=== PATIENT | male | born 1950 | race Caucasian/White ===

== ENCOUNTER 2020-07-14 09:10 | Outpatient (REF) | payer MEDICARE, SELFPAY ==
[2020-07-14 13:40] LABS: HCT 48.2 % (40.0-50.0); MCH 31.7 pg (27.0-33.0); MCHC 33.2 % (32.0-36.0); MCV 95.4 fL (80-95); MPV 10.9 fL (8.0-11.0); Platelet Count 157 10^3/uL (130-400); RBC 5.05 10^6/uL (4.36-5.78); RDW 13.7 % (11.8-14.1); RDW-SD 48.3 fL; WBC 5.64 10^3/uL (4.4-10.8)
[2020-07-14 14:09] LABS: ALT 24 U/L (16-63); AST 19 U/L (15-37); Albumin 3.9 g/dL (3.4-5.0); Alkaline Phosphatase 73 U/L (46-116); BUN 18 mg/dL (7-18); Bilirubin, Total 0.8 mg/dL (0.2-1.0); CREATININE 0.9 mg/dL (0.70-1.30); Calculated LDL 141 mg/dL (<100); Chloride 104 mmol/L (98-107); Cholesterol 206 mg/dL (<200); Glucose 91 mg/dL (74-106); HDL Cholesterol 54 mg/dL (40-60); Potassium 4.7 mmol/L (3.5-5.1); Sodium 142 mmol/L (136-145); Triglyceride 55 mg/dL (<150)
[2020-07-14 22:03] LABS: PSA, Screening 0.3 ng/mL (0.0-4.5)
== END 2020-07-14 09:11 | disposition home or self-care (01) ==
LOC: NCHCN 09:10
PROVIDERS: PCP Family Medicine; Visit Provider Family Medicine
DX: Z13.228 Encounter for screening for other metabolic disorders; Z12.5 Encounter for screening for malignant neoplasm of prostate; E78.89 Other lipoprotein metabolism disorders
CPT/HCPCS: 80053; 80061; 84153; 85027

== ENCOUNTER 2022-12-05 08:18 | Outpatient (REF) | payer MEDICARE, SELFPAY ==
[2022-12-05 17:12] LABS: ALT 22 U/L (16-63); AST 21 U/L (15-37); Albumin 3.8 g/dL (3.4-5.0); Alkaline Phosphatase 75 U/L (46-116); Anion Gap 7.5 mmol/L (3-11); BUN 16 mg/dL (7-18); CO2 31.5 mmol/L (21.0-32.0); CREATININE 0.9 mg/dL (0.70-1.30); Calculated LDL 129 mg/dL (<100); Chloride 105 mmol/L (98-107); Cholesterol 192 mg/dL (<200); Estimated GFR 91.88 (mL/min/1.73m2); Glucose 81 mg/dL (74-106); HDL Cholesterol 51 mg/dL (40-60); Potassium 4.6 mmol/L (3.5-5.1); Sodium 144 mmol/L (136-145); Triglyceride 60 mg/dL (<150)
== END 2022-12-05 08:19 | disposition home or self-care (01) ==
LOC: NCHCN 08:18
PROVIDERS: PCP Family Medicine; Visit Provider Family Medicine
DX: Z00.00 Encounter for general adult medical examination without abnormal findings (principal)
CPT/HCPCS: 80053; 80061

== ENCOUNTER 2023-12-17 11:34 | Outpatient (REF) | payer MEDICARE, SELFPAY ==
[2023-12-17 15:23] LABS: ALT 22 U/L (16-63); AST 19 U/L (15-37); Albumin 3.8 g/dL (3.4-5.0); Alkaline Phosphatase 69 U/L (46-116); Anion Gap 5.2 mmol/L (3-11); BUN 14 mg/dL (7-18); Bilirubin, Total 1.17 mg/dL (0.2-1.0); CO2 31.8 mmol/L (21.0-32.0); CREATININE 0.9 mg/dL (0.70-1.30); Calculated LDL 132 mg/dL (<100); Chloride 106 mmol/L (98-107); Cholesterol 218 mg/dL (<200); Estimated GFR 91.31 (mL/min/1.73m2); Glucose 93 mg/dL (74-106); HDL Cholesterol 69 mg/dL (40-60); Potassium 4.6 mmol/L (3.5-5.1); Sodium 143 mmol/L (136-145); Total Protein 6.6 g/dL (6.4-8.2); Triglyceride 85 mg/dL (<150)
== END 2023-12-17 11:35 | disposition home or self-care (01) ==
LOC: NCHCN 11:34
PROVIDERS: PCP Family Medicine; Visit Provider Family Medicine
DX: R79.89 Other specified abnormal findings of blood chemistry (principal); Z00.00 Encounter for general adult medical examination without abnormal findings
CPT/HCPCS: 80053; 80061